=== PATIENT | female | born 1975 | race African-American/Black ===

== ENCOUNTER → 2017-05-20 | Day surgery (SDC) | payer OTHER ==
[~2017-05-20] MED LIST: DEXAMETHASONE SOD PHOSPHATE 4 MG/1 ML VIAL ONE; KETOROLAC TROMETHAMINE 30 MG/1 ML VIAL ONE; MIDAZOLAM HCL 2 MG/2 ML SINGLE DOSE VIAL ONE; PROPOFOL 20 ML ONE; SUCCINYLCHOLINE CHLORIDE 200 MG/10 ML VIAL ONE
--- NOTE | 2017-05-21 12:02 | PATH ---
Surgical Pathology Report Patient Name: DADA GARCÍA [facility]. Rec. #: [id number] /Age/Gender: 1975 (Age: 42) / F Account: [id number] Location: [facility] Taken: 05/20/2017 Received: 05/20/2017 Reported: 05/21/2017 Physicians: Roly King M.D. Specimen(s) Received A: RIGHT BREAST CORE BIOPSY 10.00 0.9CM B: RIGHT BREAST CORE BIOPSY 11.00 2CM Clinical History The The Palpable mass, nonpalpable lesion Ultrasound findings: Probably benign Final Diagnosis A. BREAST, RIGHT, 10:00, ULTRASOUND GUIDED CORE BIOPSY: FIBROADENOMA. B. BREAST, RIGHT, 11:00, ULTRASOUND GUIDED CORE BIOPSY: FIBROADENOMA, HYALINIZED. Electronically Signed Mona Roman M.D. Gross Description A. Received in formalin labeled "right 10:00," are 4 marte-yellow, cylindrical portions of fibroadipose tissue averaging 1.5 cm in length and averaging 0.2 cm in diameter. The specimens are submitted in toto in one cassette. B. Received in formalin labeled "right 11:00," are 4 marte-yellow, cylindrical portions of fibroadipose tissue ranging from 0.5-1.7 cm in length and averaging 0.2 cm in diameter. The specimens are submitted in toto in one cassette. Total formalin fixation time: Between 9-15 hours 05/20/201705/20/2017
== END | disposition home or self-care (01) ==
LOC: JRADUS-SUR 09:44
PROVIDERS: ATTEND Obstetrics & Gynecology
PROC: 0HBT3ZX Excision of Right Breast, Percutaneous Approach, Diagnostic (ICD-10-PCS; principal; 2017-05-20)
DX: D24.1 Benign neoplasm of right breast (principal)
CPT/HCPCS: 19083; 19084; 87899; 88305-TC; A4648

== ENCOUNTER 2017-06-13 06:17 | Day surgery (SDC) | payer OTHER ==
[2017-06-12 09:05] VITALS: BMI 37.1
[2017-06-13 10:33] VITALS: TEMP 98.4
[2017-06-13 12:48] VITALS: BP 103/60; PULSE 69
== END 2017-06-13 12:30 | disposition home or self-care (01) ==
LOC: JASU-SURG 06:17
PROVIDERS: ATTEND Obstetrics & Gynecology
PROC: 0UB98ZZ Excision of Uterus, Via Natural or Artificial Opening Endoscopic (ICD-10-PCS; principal; 2017-06-13)
PROC: 0UDB7ZX Extraction of Endometrium, Via Natural or Artificial Opening, Diagnostic (ICD-10-PCS; 2017-06-13)
PROC: 0UJD8ZZ Inspection of Uterus and Cervix, Via Natural or Artificial Opening Endoscopic (ICD-10-PCS; 2017-06-13)
DX: D25.0 Submucous leiomyoma of uterus (principal); N84.0 Polyp of corpus uteri
CPT/HCPCS: 94760